=== PATIENT | female | born 1975 | race Caucasian/White ===

== ENCOUNTER 2020-10-31 12:22 | Emergency (ER) | payer SELFPAY ==
[~2020-10-31] VITALS: Ht 142.2 cm; Wt 62.0 kg
[2020-10-31] MEDS ORDERED: HYDROCODONE/ACETAMINOPHEN 5/325MG TABLET PO STA (13:11)
[2020-10-31] MEDS ORDERED: IBUP-2029 PO (14:18)
[2020-10-31] MEDS ORDERED: CYCL5TAB PO (14:18)
[2020-10-31 15:02] VITALS: BP 152/58
== END 2020-10-31 15:03 | disposition home or self-care (01) ==
LOC: ER 12:22
DX: S63.8X1A Sprain of other part of right wrist and hand, initial encounter (principal); X58.XXXA Exposure to other specified factors, initial encounter; R03.0 Elevated blood-pressure reading, without diagnosis of hypertension; Y93.89 Activity, other specified; Y92.89 Other specified places as the place of occurrence of the external cause; Y99.0 Civilian activity done for income or pay
CPT/HCPCS: 73110; 73130; 99284; A4565